=== PATIENT | female | born 2000 ===

== ENCOUNTER 2024-05-31 07:53 | Outpatient (CLI) | payer BC ==
[2024-05-31] MEDS ORDERED: Iopamidol 370 76% 100 ML VIAL ONE (12:03)
== END 2024-05-31 07:54 | disposition home or self-care (01) ==
LOC: CT 07:53
PROVIDERS: ATTEND Surgery Trauma Surgery
DX: I77.4 Celiac artery compression syndrome (principal); R10.9 Unspecified abdominal pain
CPT/HCPCS: 74174; 76705; Q9967